=== PATIENT | female | born 1995 | race Caucasian/White ===

== ENCOUNTER 2019-05-07 19:59 | Emergency (ER) | payer SELFPAY | END 2019-05-07 20:22 | disposition left against medical advice (07) | LOC: JD.ED 19:59 | DX: Z04.3 Encounter for examination and observation following other accident (principal); Z3A.32 32 weeks gestation of pregnancy ==

== ENCOUNTER 2020-11-23 19:56 | Emergency (ER) | payer BC ==
--- NOTE | 2020-11-23 20:52 | EDM.PDOC ---
ED HPI GENERAL MEDICAL PROBLEM - General Chief Complaint: Lower Extremity Injury/Pain Stated Complaint: LEFT FOOT INJURY FELL ON TOY Time Seen by Provider: 11/23/20 19:59 Source of Information: Reports: Patient, RN Notes Reviewed History Limitations: Reports: No Limitations - History of Present Illness INITIAL COMMENTS - FREE TEXT/NARRATIVE: Patient is a 25-year-old female who presents to the ER for a left foot injury, patient notes that she stumbled over a plastic car at home, ended up injuring the left lateral portion of her midfoot. She notes that she was able to walk on it initially, but states it has become very painful to do so afterwards. She did take 400 mg ibuprofen and this seemed to help relieve some of the pain. She did also notice some swelling directly after the incident. She is not having any numbness or tingling distal to the injury, and having no pain into her knee. Patient denies any other sick-like symptoms, fever/chills, cough/shortness of b reath, nausea/vomiting/diarrhea. Left Foot Pain Score (Numeric/FACES): 4 - Related Data Allergies Allergy/AdvReac Type Severity Reaction Status Date / Time No Known Allergies Allergy Verified 11/23/20 20:04 Home Meds: Home Meds . [No Known Home Meds] 11/23/20 [History] Past Medical History - Past Health History Medical/Surgical History: Denies Medical/Surgical History Gastrointestinal History: Reports: GERD PAP[employer] History: Reports: Social & Family History - Family History Family Medical History: No Pertinent Family History - Tobacco Use Tobacco Use Status *Q: Never Tobacco User - Caffeine Use Caffeine Use: Reports: Coffee, Energy Drinks - Recreational Drug Use Recreational Drug Use: No Review of Systems - Review of Systems Review Of Systems: Comprehensive ROS is negative, except as noted in HPI. ED EXAM, GENERAL - Physical Exam Exam: See Below Exam Limited By: No Limitations General Appearance: Alert, WD/WN, No Apparent Distress Respiratory/Chest: No Respiratory Distress, Lungs Clear, Normal Breath Sounds, No Accessory Muscle Use, Chest Non-Tender Cardiovascular: Normal Peripheral Pulses, Regular Rate, Rhythm, No Edema Peripheral Pulses: 2+: Dorsalis Pedis (L), Dorsalis Pedis (R) Extremities: Normal Range of Motion, Normal Capillary Refill, Other (swelling to left lateral midfoot) Neurological: Alert, Oriented, Normal Cognition, No Motor/Sensory Deficits Psychiatric: Normal Affect, Normal Mood Skin Exam: Warm, Dry, Intact, No Rash, Ecchymosis (slight over the left lateral midfoot) ED TRAUMA EXTREMITY PROCEDURES - Splinting Left Lower Extremity Splint Site: left foot Pre-Procedure NV Status: Normal Post-Procedure NV Status: Normal Splint Material: Boot Orthotic Applied & Form Fitted By: Nurse Provider Post-Splint Application NV Check: NV Status Normal, Good Position Complications: No Course - Vital Signs Last Recorded V/S: Last Vital Signs Temp 98.3 F 11/23/20 20:01 Pulse 119 H 11/23/20 20:01 Resp 16 11/23/20 20:01 BP 140/95 H 11/23/20 20:01 Pulse Ox 100 11/23/20 20:01 - Orders/Labs/Meds Orders: Active Orders 24 hr Category Date Time Status Foot Comp Min 3V Lt [CR] Stat Exams 11/23/20 20:02 Ordered DME for Discharge [COMM] Routine Oth 11/23/20 20:46 Ordered - Re-Assessments/Exams Free Text/Narrative Re-Assessment/Exam: 11/23/20 20:51 Patient presents to the ER for her left foot injury. X-rays were taken at time of triage, and does reveal a comminuted, transverse fracture through the base of the fifth metatarsal. We will go ahead and place the patient in a walking boot for immobilization of the area, to prevent further injury. Departure - Departure Time of Disposition: 20:52 Disposition: Home, Self-Care 01 Condition: Good Clinical Impression: Fracture of fifth metatarsal bone of left foot Qualifiers: Encounter type: initial encounter Fracture type: closed Fracture alignment: nondisplaced Qualified Code(s): S92.355A - Nondisplaced fracture of fifth me tatarsal bone, left foot, initial encounter for closed fracture - Discharge Information *PRESCRIPTION DRUG MONITORING PROGRAM REVIEWED*: No *COPY OF PRESCRIPTION DRUG MONITORING REPORT IN PATIENT BUTCH: No Instructions: Metatarsal Fracture Referrals: PCP,None [Primary Care Provider] - Forms: ED Department Discharge, ED Return to Work/School Form Additional Instructions: You have been evaluated in the ED for your left foot injury. Your x-ray demonstrated a fracture of your fifth metatarsal in your left foot. You were placed in a walking boot, to provide immobilization of the area and to prevent further injury, you were also given crutches so you can be nonweightbearing on the extremity. Please use ice as tolerated to the affected area. You may elevate the affected area to provide further relief from swelling. You may take Tylenol 500 mg or ibuprofen 600mg q6 hrs for pain relief. Please do so until you have a tolerable level of pain with activity. Do not exceed 4000mg Tylenol, Do not exceed 3200mg ibuprofen in a 24 hour time period. Please call Ortho for follow-up and further evaluation Dr. Carballo is our orthopedic surgeon, his office number is [phone]. Please call and set up an appointment as soon as possible for further management. Please return to ED if your symptoms should change or worsen. Sepsis Event Note (ED) - Evaluation Sepsis Screening Result: No Definite Risk - Focused Exam Vital Signs: Vital Signs Temp Pulse Resp BP Pulse Ox 11/23/20 20:01 98.3 F 119 H 16 140/95 H 100 - My Orders Last 24 Hours: My Active Orders 11/23/20 20:02 Foot Comp Min 3V Lt [CR] Stat 11/23/20 20:46 DME for Discharge [COMM] Routine - Assessment/Plan Last 24 Hours: My Active Orders 11/23/20 20:02 Foot Comp Min 3V Lt [CR] Stat 11/23/20 20:46 DME for Discharge [COMM] Routine
--- NOTE | 2020-11-25 08:44 | CR ---
Left foot: 4 views of the left foot were obtained. Comparison: No previous study. Slightly comminuted fracture involving the base of the fifth metatarsal is seen with slight displacement. Soft tissue swelling is noted. No additional fracture or other bony abnormality is appreciated. Impression: 1. Slightly comminuted and minimally displaced fracture involving the base of the fifth metatarsal. Soft tissue swelling. 2. No additional osseous abnormality is appreciated. Diagnostic code #3 I agree with preliminary report from [facility], finalized on 11/23/20, 9:28 PM Central Daylight Time, code 1
== END 2020-11-23 21:15 | disposition home or self-care (01) ==
LOC: JD.ED 19:56
DX: S92.355A Nondisplaced fracture of fifth metatarsal bone, left foot, initial encounter for closed fracture (principal); W22.8XXA Striking against or struck by other objects, initial encounter; Y92.009 Unspecified place in unspecified non-institutional (private) residence as the place of occurrence of the external cause
CPT/HCPCS: 73630-26-LT; 73630-LT; 99283; 99283-25